=== PATIENT | female | born 1970 | race African-American/Black ===

== ENCOUNTER 2020-11-12 09:14 | Outpatient (CLI) | payer SELFPAY ==
--- NOTE | 2020-11-12 12:00 | NEURO_ITS ---
Impression: # Complains of pain and numbness of feet. # Normal nerve conduction study. # Normal needle/EMG exam. # Clinical correlation recommended,problem could be related to small fiber neuropathy. Nerve Conduction Studies Anti Sensory Summary Table Stim Site NR Peak (ms) P-T Amp (?V) Site1 Site2 Delta-P (ms) Dist (cm) Rickie (m/s) Left Sup Fibular Anti Sensory (Ant Lat Mall) 14 cm 3.3 33.8 14 cm Ant Lat Mall 3.3 16.0 48 Right Sup Fibular Anti Sensory (Ant Lat Mall) 14 cm 3.7 16.2 14 cm Ant Lat Mall 3.7 16.0 43 Left Sural Anti Sensory (Lat Mall) Calf 4.3 4.8 Calf Lat Mall 4.3 18.0 42 Right Sural Anti Sensory (Lat Mall) Calf 3.8 23.1 Calf Lat Mall 3.8 16.0 42 Motor Summary Table Stim Site NR Onset (ms) O-P Amp (mV) Site1 Site2 Delta-0 (ms) Dist (cm) Rickie (m/s) Left Peroneal Motor (Vastus Med) Ankle 5.1 2.1 Popit Ankle 9.2 40.0 43 Popit 14.3 2.7 Right Peroneal Motor (Vastus Med) Ankle 5.1 3.2 Popit Ankle 8.5 39.0 46 Popit 13.6 4.2 Left Tibial Motor (Abd De Santiago Brev) Ankle 5.3 2.3 Knee Ankle 10.0 42.0 42 Knee 15.3 1.3 Right Tibial Motor (Abd De Santiago Brev) Ankle 5.9 4.4 Knee Ankle 10.3 42.0 41 Knee 16.2 2.7 F Wave Studies NR F-Lat (ms) L-R F-Lat (ms) Left Peroneal (Mrkrs) (EDB) 56.45 1.72 Right Peroneal (Mrkrs) (EDB) 54.73 1.72 Left Tibial (Mrkrs) (Abd Hallucis) 56.69 1.10 Right Tibial (Mrkrs) (Abd Hallucis) 55.59 1.10 EMG Side Muscle Nerve Root Ins Act Fibs Amp Dur Recrt Comment Right AntTibialis Dp Br Fibular L4-5 Nml Nml Nml Nml Nml Right Gastroc Tibial S1-2 Nml Nml Nml Nml Nml Right Fibularis Long Sup Br Fibular L5-S1 Nml Nml Nml Nml Nml Right Flex Dig Long Tibial L5-S2 Nml Nml Nml Nml Nml Right Ext Dig Brev Dp Br Fibular L5, S1 Nml Nml Nml Nml Nml Left AntTibialis Dp Br Fibular L4-5 Nml Nml Nml Nml Nml Left Gastroc Tibial S1-2 Nml Nml Nml Nml Nml Left Fibularis Long Sup Br Fibular L5-S1 Nml Nml Nml Nml Nml Left Flex Dig Long Tibial L5-S2 Nml Nml Nml Nml Nml Left Ext Dig Brev Dp Br Fibular L5, S1 Nml Nml Nml Nml Nml MTDD
== END 2020-11-12 09:15 | disposition home or self-care (01) ==
LOC: ANHNEURO 09:18
PROVIDERS: PCP Internal Medicine Infectious Disease; Visit Provider Internal Medicine Infectious Disease
DX: G62.9 Polyneuropathy, unspecified (principal)
CPT/HCPCS: 95886; 95910

== ENCOUNTER 2024-08-09 11:43 | Outpatient (CLI) | payer MEDICARE, SELFPAY ==
--- NOTE | ~2024-08-09 | CT_ITS ---
CT Scan of the Chest without Contrast: Clinical Indication: Abnormal findings on chest x-ray Technique: Contiguous sections were acquired throughout the chest without intravenous contrast. Dose reduction technique was used on this scan by utilizing automated exposure control and iterative recon struction technique. The dose-length product (DLP) was 298.62 mGy-cm. Findings: There is no evidence of any significant mediastinal, hilar or axillary lymphadenopathy. The mediastin al soft tissues appear normal. There is no evidence of pleural or pericardial effusion. The lungs are clear. No pulmonary nodules or infiltrates are noted. Images through the upper abdomen reveal tiny calcified gallstones. Impression: No significant abnormalities seen in the chest. Cholelithiasis. Reviewed, dictated and finalized at [facility]. Impression: No significant abnormalities seen in the chest. Cholelithiasis.
== END 2024-08-09 11:44 | disposition home or self-care (01) ==
LOC: MICIMG 11:50
PROVIDERS: PCP Internal Medicine Infectious Disease; Visit Provider Internal Medicine Infectious Disease
DX: K80.20 Calculus of gallbladder without cholecystitis without obstruction (principal); R91.8 Other nonspecific abnormal finding of lung field
CPT/HCPCS: 71250

== ENCOUNTER 2024-08-15 13:24 | Outpatient (CLI) | payer MEDICARE, SELFPAY ==
--- NOTE | ~2024-08-15 | MM_ITS ---
EXAMINATION: MM screening christi BI w philomena HISTORY: Screening TECHNIQUE: Craniocaudal and mediolateral oblique 3-D tomosynthesis images were obtained and synthetic 2-D images were generated. CAD analysis was submitted and interpreted. COMPARISON: No prior mammogram is available for comparison at this institution. BREAST PARENCHYMAL COMPOSITION: There are scattered areas of fibroglandular density. FINDINGS: Punctate calcifications detected bilaterally, stable and benign in appearance, dermal in or igin. Stable parenchymal pattern without suspicious microcalcifications, architectural distortion, discrete masses or significant asymmetry. IMPRESSION: 1. No mammographic/tomographic evidence of malignancy. BI-RADS Category 0: Incomplete: Needs comparison with prior mammograms. Reviewed, dictated and finalized at location [facility].
== END 2024-08-15 13:25 | disposition home or self-care (01) ==
PROVIDERS: PCP Internal Medicine Infectious Disease; Visit Provider Internal Medicine Infectious Disease
DX: Z12.31 Encounter for screening mammogram for malignant neoplasm of breast (principal)
CPT/HCPCS: 77063; 77067